=== PATIENT | female | born 1980 | race Caucasian/White ===

== ENCOUNTER 2018-04-13 11:02 | Inpatient (IN) | payer BC, OTHER ==
[~2018-04-13] VITALS: Ht 167.6 cm; Wt 72.6 kg
[2018-04-13] MEDS ORDERED: METHOCARBAMOL 750 MG TABLET PO PRN (21:00)
[2018-04-13] MEDS ORDERED: LORAZEPAM 2 MG/1 ML VIAL IM PRN (21:00)
[2018-04-13] MEDS: ROPINIROLE 2 MG PO SCH (21:00)
[2018-04-13] MEDS: SPIRONOLACTONE 50 MG PO SCH (21:00)
[2018-04-13] MEDS ORDERED: MAGNESIUM HYDROXIDE 30 ML LIQUID UDC PO PRN (21:00)
[2018-04-13] MEDS ORDERED: THIAMINE HCL 200 MG/2 ML VIAL IM ONE (21:00)
[2018-04-13] MEDS ORDERED: MIRALAX 17 GM POWD.PACK PO PRN (21:00)
[2018-04-13] MEDS ORDERED: CLONIDINE HCL 0.1 MG TABLET PO PRN (21:00)
[2018-04-13] MEDS ORDERED: NICOTINE 14 MG/24HR PATCH TD PRN (21:00)
[2018-04-13] MEDS ORDERED: ONDANSETRON ODT 4 MG TAB.RAPDIS SL PRN (21:00)
[2018-04-13] MEDS ORDERED: ONDANSETRON 4 MG/2 ML VIAL IM PRN (21:00)
[2018-04-13] MEDS ORDERED: MAG HYDROX/AL HYDROX/SIMETH 30 ML LIQUID UDC PO PRN (21:00)
[2018-04-13] MEDS ORDERED: LORAZEPAM 1 MG TABLET PO PRN (21:00)
[2018-04-13] MEDS ORDERED: DICYCLOMINE HCL 20 MG TABLET PO PRN (21:00)
[2018-04-13] MEDS ORDERED: diphenhydrAMINE 50 MG CAPSULE PO PRN (21:00)
[2018-04-13] MEDS ORDERED: LOPERAMIDE HCL 2 MG CAPSULE PO PRN ×2 (21:00)
[2018-04-13 21:06] LABS: *URINE HCG, QUAL NEGATIVE (NEGATIVE)
[2018-04-13 21:09] LABS: BASOPHILS # (AUTO) 0.1 K/uL (0.0-8.0); EOSINOPHILS # (AUTO) 0.5 K/uL (0.0-0.7); EOSINOPHILS % (AUTO) 3.5 % (0.0-7.0); HEMATOCRIT 34.3 % (31.2-41.9); HEMOGLOBIN 11.5 g/dL (10.9-14.3); LYMPHOCYTES # (AUTO) 2.5 K/uL (20.0-40.0); LYMPHOCYTES % (AUTO) 18.6 % (20.5-51.5); MEAN CORPUSCULAR HEMOGLOBIN 30.4 uug (24.7-32.8); MEAN CORPUSCULAR HGB CONC 33 g/dL (32.3-35.6); MEAN CORPUSCULAR VOLUME 90.8 fL (75.5-95.3); MONOCYTES # (AUTO) 0.8 K/uL (2.0-10.0); MONOCYTES % (AUTO) 5.7 % (0.0-11.0); NEUTROPHILS # (AUTO) 9.4 K/uL (1.8-8.9); NEUTROPHILS % (AUTO) 71.2 % (38.5-71.5); PLATELET COUNT (AUTO) 572 K/uL (179-408); RED BLOOD CELL COUNT(AUTO) 3.78 MIL/uL (3.63-4.92); WHITE BLOOD COUNT (AUTO) 13.2 K/uL (3.8-11.8)
--- NOTE | 2018-04-13 21:15 | NUR ---
Intake Assessment Assessment done at intake office. Pt appears mildly withdrawing. Patient is alert & oriented x4. She has a blunt affect, flushed face, anxious/irritable mood. She presented with fine tremors, chills, & complains of moderately severe headache and 6/10 generalized body aches. Speech is soft & clear. No complaints of shortness of breath noted. Bowel sounds active in all quadrants. Vitals taken immediately B/P 123*73, FL 87, RR 18, Temp 98.1, O2Sat 98%. Pt is coherent and is able to sign consent & respond to questions appropriately. Explained to pt unit protocols such as Q4H Vitals signs check & regarding destruction of any controlled substances brought to facility and handling of all medications. Pt verbalized understanding.
[2018-04-13 21:19] LABS: *AMPHETAMINE, URINE NEGATIVE (NEGATIVE); *BARBITURATE, URINE NEGATIVE (NEGATIVE); *CANNABINOID, URINE POSITIVE (NEGATIVE); *COCCAINE, URINE NEGATIVE (NEGATIVE); *OPIATE, URINE POSITIVE (NEGATIVE); *PHENCYCLIDINE SCREEN,URINE NEGATIVE (NEGATIVE)
[2018-04-13 21:21] LABS: ALANINE AMINOTRANSFERASE 24 U/L (14-59); ALKALINE PHOSPHATASE 150 U/L (50-136); AMYLASE 29 U/L (25-115); ASPARTATE AMINOTRANSFERASE 14 U/L (15-37); BILIRUBIN,TOTAL 0.4 mg/dL (0.2-1.0); CARBON DIOXIDE 32 mmol/L (21-32); CHLORIDE 104 mmol/L (98-107); CREATININE 0.6 mg/dL (0.6-1.3); GLUCOSE 95 mg/dL (74-106); LIPASE 71 U/L (73-393); MAGNESIUM 1.9 mg/dL (1.8-2.4); POTASSIUM 3.7 mmol/L (3.5-5.1); TOTAL PROTEIN, SERUM 7.6 g/dL (6.4-8.2); UREA NITROGEN, BLOOD 11 mg/dL (7-18)
--- NOTE | 2018-04-13 21:26 | NUR ---
ADMISSION NOTE: Patient is a 38 y.o female admitted at [facility] on 04/13/18 for medically supervised withdrawal from ETOH, Tramadol & Lynndyl. Patient arrived at approximately 2126pm. Body search done and skin check performed by female staff nurse, no contraband found. Skin noted to be intact. Pt is 5'6" tall and weighs 160 lbs in a standing scale. Pt is cooperative during assessment. Patient is oriented to floor unit and room. Patient follows a regular diet with allergies to Naproxen. Pt wishes to be full Code. Pt appears mildly withdrawing. Patient is alert & oriented x4. She has a blunt affect, flushed face, anxious/irritable mood. She presented with fine tremors, chills, & complains of moderately severe headache and 6/10 generalized body aches. Speech is soft & clear. No complaints of shortness of breath noted. Bowel sounds active in all quadrants. Last Bowel movement was today 04/13/18. Lung Sounds clear throughout. Pt denies SOB, cough or chest pain at this time. Pt denies visual, auditory & tactile hallucinations. COWS 7 CIWA 14 noted at this time. Pt has a PCP named Dr. Roche. Pt has medical history such as Osteoarthritis, RLS, Iron deificiency anemia, PCOS, Asthma, Bipolar D/O, Panic D/O Anxiety, Depression, Herpes, Hysterectomy(2 weeks ago), Gastric Bypass(2002), & 2x. Pt reported a hx of suicide attempt 13 years ago where she took a large amount of pills. Per pt, My life was just a mess back then. Pt currently denies SI/HI. She denies hx of seizures. Pt placed on a Fall & Seizure precaution. Pt brought home medications with her and was reconciled. Blood Labs were drawn. Pt was able to provide urine sample for drug screen upon admission and is voiding clear yellow urine with no problems. Substance use: 1. ETOH- Pt stated that she binge drinks every week and would drink 1-2 pints of vodka for 2-5 days at a time. Per pt, she had 1 pint of Vodka on the day of admission 04/13/18. 2. Tramadol- Patient stated that she started taking Tramadol a year ago for her Osteoarthritis. Patient is taking 500-750mg of Tramadol daily. She had a 150mg today 04/13/18 at around 2pm. 3. Lynndyl- Patient stated that she started taking Lynndyl a year ago for her Osteoarthritis. Patient is taking 50-75mg of Lynndyl daily. She had a 5 mg today 04/13/18 at around 2pm. Pt has been to [facility] in [place] last 2013 where she stayed sober for 3 years. She relapsed 1 year ago. Per patient, "I had a when I had my last baby and had to take some pills, after that I could not stop". Per pt, she decided to come to treatment because "Im here to get off medications". She also stated "I just wanted to be a better person for myself & to be a better mother. Now I have more to look forward to in life". Patient is a daily smoker currently smokes 10-15 cigarettes daily. Fall & Seizure precautions are in place. Both side rails are up, educated on proper use of call light with good verbal understanding. Dr. Ayala saw patient at intake and orders are placed. Educated patient about plan of care including detox, group therapy, individual therapy, and discharge planning. Encouraged patient to verbalized feelings. Encourage fluids as tolerated. Will continue to monitor patient.
[2018-04-13 21:29] LABS: ETHANOL < 3 MG/DL (0-0)
[2018-04-13 21:56] LABS: IRON, SERUM 15 ug/dL (50-175)
[2018-04-13 22:26] LABS: THYROID STIMULATING HORMONE 1.754 mIU/mL (0.358-3.740)
[2018-04-13] MEDS: LORAZEPAM 1 MG TABLET PO PRN (22:39)
[2018-04-13] MEDS: ACETAMINOPHEN 325 MG TABLET PO PRN (22:39)
--- NOTE | 2018-04-13 22:39 | NUR ---
PRN Ativan/Robaxin/Tylenol Patient presented with sweating, anxiety, agitation, fine tremors, moderately severe headache, generalized body aches. CIWA 14 noted at this time. PRN Ativan, Robaxin & Tylenol administered as ordered. Safety measures in place. Will continue to monitor patient.
[2018-04-13] MEDS ORDERED: KETO10TA2 PO (22:42)
[2018-04-13] MEDS ORDERED: PROM25TA15 PO (22:42)
[2018-04-13] MEDS ORDERED: BUPR100T6 PO (22:42)
[2018-04-13] MEDS ORDERED: FLUO-120 PO (22:42)
[2018-04-13] MEDS ORDERED: IBUP-1957 PO (22:42)
[2018-04-13] MEDS ORDERED: ROPI1TAB2 GT (22:42)
[2018-04-13] MEDS ORDERED: LAMO100T PO (22:42)
[2018-04-13] MEDS ORDERED: SPIR50TA3 PO (22:43)
--- NOTE | 2018-04-13 23:39 | NUR ---
PRN Reassessment Patient appears less restless. Pt verbalized decreased in anxiety & agitation & he reports some relief of headache. CIWA 10 noted at this time. Pt in bed and appears comfortable. Safety measures in place. Will continue to monitor patient.
[2018-04-14] VITALS: BP 126/72
[2018-04-14] MEDS ORDERED: BUPRENORPHINE HCL 2 MG TAB.SUBL SL PRN (03:00)
[2018-04-14 04:00] VITALS: BP 127/83
--- NOTE | 2018-04-14 07:08 | NUR ---
End of Shift Note: Patient is a 38 y.o female admitted last night for medically supervised withdrawal from [place], Tramadol & ETOH. Patient remains alert & oriented x4. She presented with anxiety, agitation, fine tremors, chills, moderately severe headache and generalized body aches. She will be started on a Subutex taper today. Last COWS 7 CIWA 10. She received PRN Ativan 2mg, Robaxin and Tylenol last night and was effective. Continued to closely monitor patient. Vitals noted WNL and will be closely monitored. She was able to sleep for a total of 5 hours. Fluid intake: 850 ml, Voided 1x with no bowel movement. Continue to encourage pt to participate in group therapy and to increase fluid intake as tolerated. All needs attended & met. Safety measures in place. Will endorse pt to day shift nurse.
[2018-04-14 08:00] VITALS: BP 105/72
[2018-04-14] MEDS: THIAMINE HCL 100 MG TABLET PO SCH (08:10)
[2018-04-14] MEDS: MULTIVITAMINS,THERAPEUTIC TABLET PO SCH (08:10)
[2018-04-14] MEDS: BUPRENORPHINE HCL 2 MG TAB.SUBL SL SCH ×3 (08:10→20:53)
--- NOTE | 2018-04-14 08:15 | NUR ---
CIWA 9 AND PRN ATIVAN 1 MG ADMINISTERED TO MANAGE S/S OF W/D. COWS 16 AND INDUCTION DOSE GIVEN ORDERED. PPD PLANTED TO [facility]. PUPILS MODERATELY DILATED. TREMORS TO BUE NOTED. SHE IS FIDGETY. WILL CONTINUE TO MONITOR AND MANAGE S/S OF W/D
--- NOTE | 2018-04-14 08:15 | NUR ---
START OF SHIFT: RECEIVED PT A/O X 4. SHE PRESENTS WITH ANXIOUS MOOD AND CONGRUENT AFFECT. SHE C/O SWEATS,CHILLS,ANXIETY,MILD NAUSEA,RESTLESSNESS AND TREMORS. SOUMYA
[2018-04-14] MEDS ORDERED: FOLIC ACID 1 MG TABLET PO SCH (09:00)
[2018-04-14] MEDS ORDERED: TUBERCULIN,PURIF.PROT.DERIV. 5 TU/0.1 ML TEST ID ONE (09:00)
--- NOTE | 2018-04-14 09:15 | NUR ---
PRN ATIVAN 1 MG MILDLY EFFECTIVE. CIWA 7. WILL CONTINUE TO MONITOR AND MANAGE S/S OF W/D.
[2018-04-14 12:00] VITALS: BP 142/84
[2018-04-14] MEDS: IBUPROFEN 600 MG TABLET PO PRN ×2 (12:14→20:52)
[2018-04-14] MEDS: FAMOTIDINE 20 MG TABLET PO SCH (12:14)
[2018-04-14] MEDS ORDERED: BACLOFEN 10 MG TABLET PO SCH ×2 (13:00→21:00)
[2018-04-14] MEDS: DICYCLOMINE HCL 20 MG TABLET PO SCH ×2 (14:18→20:52)
[2018-04-14] MEDS: LORAZEPAM 1 MG TABLET PO PRN ×2 (14:18→20:53)
--- NOTE | 2018-04-14 14:22 | NUR ---
PRN ATIVAN 2 MG PO GIVEN FOR CIWA 14. SHE C/O SWEATING , CHILLS FIDGETING ANXIETY RESTLESSNESS AND FEELS SHE IS CRAWLING OUT OF HER SKIN.WILL MONITOR EFFECTIVENESS OF PRN MED.
--- NOTE | 2018-04-14 15:22 | NUR ---
ATIVAN PRN EFFECTIVE AEB CIWA 10. SHE STATES SHE FEELS A LITTLE BETTER.
[2018-04-14 16:00] VITALS: BP 134/90
--- NOTE | 2018-04-14 18:28 | NUR ---
END OF SHIFT: PT STARTED SUBUTEX TAPER THIS AM TO MANAGE S/S OF W/D WHICH INCLUDE NAUSEA,ANXIETY,SWEATS,CHILLS,AGITATION,BODY ACHES AND ANXIETY. SHE WAS GIVEN PRN ATIVAN 1 MG PO THIS AM AND PRN ATIVAN 2MG THIS AFTERNOON FOR ELEVATED CIWA SCORES. SHE STATES THE ATIVAN WAS EFFECTIVE. LAST COWS 12. LAST CIWA 11 . SHE WAS COMPLIANT WITH INCREASED FLUIDS. SHE INTERACTED WITH PEERS. PPD PLANTED TO [facility]. WILL PASS SHIFT REPORT TO ONCOMING NIGHT NURSE.
--- NOTE | 2018-04-14 18:56 | NUR ---
Pt requested to see RD. At RD visited, pt stated she had been on 4 different gastric bypasses, pt lost a lot of wt, now she concerned if she becoming an eating disorder, pt is knowledgeable about how to proper intake of food but she is afraid of eating food would make her become overweight again. RD explained and gave supported, gave out education materials. Pt accepted and was happy. Addendum: 04/14/18 at [address] Amended: Links added.
--- NOTE | 2018-04-14 19:15 | NUR ---
Start of Shift Note: Patient is a 38 y.o female admitted last night for medically supervised withdrawal from [place], Tramadol & ETOH. Patient remains alert & oriented x4. She has a flushed face, anxious & irritable mood, with disheveled and unkempt appearance. She presents with anxiety, agitation, fine tremors, sweating, chills, runny nose, reports moderately severe headache and 5/10 generalized body aches. She was started on a Subutex taper today and tolerating well. Last COWS 12 CIWA 11. She received PRN Ativan 2mg, and and Ativan 1mg during the day and was effective per report. Encourage pt to increase fluid intake & encourage participation in group therapy to prevent relapse. Educated patient of current plan of care for the night and medication regimen. Safety precaution in place. Bed locked in lowest position. Both side rails up. Call light within pt's reach. Will continue to monitor patient.
[2018-04-14 20:00] VITALS: BP 141/86
[2018-04-14] MEDS: ROPINIROLE 2 MG PO SCH (20:52)
[2018-04-14] MEDS: SPIRONOLACTONE 50 MG PO SCH (20:52)
--- NOTE | 2018-04-14 20:53 | NUR ---
PRN Ativan & Motrin Patient presented with anxiety, agitation, fine tremors, sweating & moderate severe headache. Pt noted with a CIWA of 18 at this time. PRN Ativan 2mg and Motrin administered as ordered. Safety measures in place. Will continue to monitor patient.
[2018-04-14] MEDS ORDERED: CLONIDINE HCL 0.1 MG TABLET PO SCH (21:00)
--- NOTE | 2018-04-14 21:53 | NUR ---
PRN Reassessment Patient verbalized decreased in anxiety, agitation & some relief from headache. Pt noted with a decreased in headache from 7/10 to 4/10 pain at this time. CIWA 13 noted after 1 hour of PRN administration. Safety measures in place. Will continue to monitor patient.
[2018-04-14] MEDS: LAMOTRIGINE 100 MG TABLET PO SCH (22:22)
[2018-04-14] MEDS: FLUOXETINE HCL 20 MG CAPSULE PO SCH (22:22)
[2018-04-15] VITALS: BP 128/72
[2018-04-15] MEDS: IBUPROFEN 600 MG TABLET PO PRN ×2 (06:46→18:52)
--- NOTE | 2018-04-15 06:46 | NUR ---
PRN Motrin Patient complained of moderate headache. She is restless and with noted facial grimacing at this time. PRN Motrin administered as ordered. Will monitor for effectiveness of medication.
--- NOTE | 2018-04-15 07:05 | NUR ---
End of Shift Note: Continue to closely monitor patient. She remains alert & oriented x4. During my shift, she presented with anxiety, agitation, fine tremors, sweating, chills, runny nose, reports myalgia and headache. Pt continues on her Subutex taper and tolerating well. Pt also on PRN Ativan to manage s/s of withdrawals. Last COWS 12 CIWA 13. She received PRN Motrin x2 for pain and Ativan for increased CIWA scores and were effective. Pt verbalized taper medications to be effective in decreasing symptoms of withdrawal. Pt stable at this time and vitals noted WNL. Continue to encourage pt to participate in group therapy to learn new coping skills and to prevent relapse. She was able to sleep for a total of 6 hours. Fluid intake: 855 ml, Voided 2x with no bowel movement. All needs attended & met. Safety measures in place. Will endorse pt to day shift nurse.
[2018-04-15 07:06] LABS: HEPATITIS B SURFACE AG Negative (Negative)
--- NOTE | 2018-04-15 07:43 | NUR ---
Start of shift note; Received report from night nurse. Patient is 38 year old female admitted on 04/13/18 for ETOH/Opiate withdrawal. Patient was placed on 5 day Subutex and PRN Ativan. Patient is AOX4, presented with anxiety, agitation, complaining of headache, muscle aches, stomach cramps. Patient received PRN Motrin and Ativan noted to be effective. Patient's last COWS is 12 and last CIWA is 18 per endorsement. Patient slept for 6 hours. Educated patient regarding the importance of compliance to treatment and medication regime. Encouraged patient to participate in group activities and therapies. All safety measures secured. Will continue to monitor patient.
--- NOTE | 2018-04-15 07:46 | NUR ---
Re-assessment; Patient reported improvement of headache. PRN medication noted to be effective.
[2018-04-15 08:00] VITALS: BP 127/88
[2018-04-15 08:04] LABS: BASOPHILS # (AUTO) 0.1 K/uL (0.0-8.0); BASOPHILS % (AUTO) 1.3 % (0.0-2.0); EOSINOPHILS # (AUTO) 0.4 K/uL (0.0-0.7); EOSINOPHILS % (AUTO) 4.3 % (0.0-7.0); HEMATOCRIT 30.1 % (31.2-41.9); HEMOGLOBIN 10.2 g/dL (10.9-14.3); LYMPHOCYTES % (AUTO) 23.4 % (20.5-51.5); MEAN CORPUSCULAR HEMOGLOBIN 31.1 uug (24.7-32.8); MEAN CORPUSCULAR HGB CONC 34 g/dL (32.3-35.6); MONOCYTES # (AUTO) 0.6 K/uL (2.0-10.0); MONOCYTES % (AUTO) 7.4 % (0.0-11.0); NEUTROPHILS # (AUTO) 5.5 K/uL (1.8-8.9); NEUTROPHILS % (AUTO) 63.6 % (38.5-71.5); PLATELET COUNT (AUTO) 364 K/uL (179-408); RED BLOOD CELL COUNT(AUTO) 3.27 MIL/uL (3.63-4.92); WHITE BLOOD COUNT (AUTO) 8.7 K/uL (3.8-11.8)
[2018-04-15 08:19] LABS: BILIRUBIN,DIRECT 0.1 mg/dL (0.0-0.2); BILIRUBIN,TOTAL 0.4 mg/dL (0.2-1.0); CREATININE 0.6 mg/dL (0.6-1.3); MAGNESIUM 1.9 mg/dL (1.8-2.4); PHOSPHOROUS 3.3 mg/dL (2.5-4.9); POTASSIUM 3.9 mmol/L (3.5-5.1); TOTAL PROTEIN, SERUM 6.1 g/dL (6.4-8.2)
[2018-04-15] MEDS: BACLOFEN 10 MG TABLET PO SCH ×3 (08:59→21:01)
[2018-04-15] MEDS: THIAMINE HCL 100 MG TABLET PO SCH (08:59)
[2018-04-15] MEDS: MULTIVITAMINS,THERAPEUTIC TABLET PO SCH (08:59)
[2018-04-15] MEDS: FAMOTIDINE 20 MG TABLET PO SCH (09:00)
[2018-04-15] MEDS: CLONIDINE HCL 0.1 MG TABLET PO SCH ×3 (09:00→21:01)
[2018-04-15] MEDS ORDERED: BUPRENORPHINE HCL 2 MG TAB.SUBL SL SCH (09:00)
[2018-04-15] MEDS: FOLIC ACID 1 MG TABLET PO SCH (09:00)
[2018-04-15] MEDS: DOCUSATE SODIUM 250 MG CAPSULE PO SCH (09:00)
[2018-04-15] MEDS: DICYCLOMINE HCL 20 MG TABLET PO SCH ×3 (09:00→21:01)
[2018-04-15 12:00] VITALS: BP 132/75
[2018-04-15] MEDS: KETOROLAC TROMETHAMINE 30 MG INJ IM PRN (12:14)
--- NOTE | 2018-04-15 12:14 | NUR ---
PRN medication; Patient is complaining of aching back pain rated 9/10. PRN Toradol 30mg /Ml IM given on left buttocks area. Will closely monitor patient for effectiveness of medication .
--- NOTE | 2018-04-15 13:14 | NUR ---
Re-assessment; Patient stated improvement of pain , at this time patient rated pain 5/10 . PRN medication noted to be effective.
[2018-04-15] MEDS: BUPRENORPHINE HCL 2 MG TAB.SUBL SL SCH ×2 (14:17→21:01)
[2018-04-15 16:00] VITALS: BP 116/61
--- NOTE | 2018-04-15 18:39 | NUR ---
End of shift note; Patient is AOX4, presented with anxiety, muscle aches, depression, stomach cramps and constipation. Patient remained compliant with treatment plan and medication regime. Medications were effective in reducing withdrawal symptoms. Patient participated in group activities and therapies. Patient received PRN IM Toradol today for lower back pain noted to be effective. Patient's last COWS score is 11 and last CIWA score is 10 at 1600. Patient was seen and evaluated by MD, MD increased scheduled Bentyl dose to 40mg/dose and added Colace for constipation. Encouraged patient to maintain adequate fluid and nutritional intake. All safety measures secured. Met all needs.
--- NOTE | 2018-04-15 18:54 | NUR ---
PRN medication; Patient is complaining of headache rated 5/10 on pain scale. PRN Motrin 600mg PO given for pain/headache. Will endorse to night nurse for re-assessment/effectiveness of medication.
--- NOTE | 2018-04-15 19:15 | NUR ---
Start of Shift Note: Endorsement received from day shift nurse. Patient is a 38 y.o female admitted last night for medically supervised withdrawal from [place], Tramadol & ETOH. She remains alert & oriented x4. She presented with anxiety, agitation, chills, restlessness, myalgia, runny nose, mild headache and fine tremors. She continues on her Subutex taper today and tolerating well. Last COWS 11 CIWA 10. She received PRN Motrin & toradol for pain during the day and was effective per report. Encourage pt to increase fluid intake & encourage participation in group therapy to prevent relapse. Educated patient of current plan of care for the night and medication regimen. Safety precaution in place. Bed locked in lowest position. Both side rails up. Call light within pt's reach. Will continue to monitor patient.
[2018-04-15 20:00] VITALS: BP 116/75
[2018-04-15] MEDS: FLUOXETINE HCL 20 MG CAPSULE PO SCH (21:01)
[2018-04-15] MEDS: LAMOTRIGINE 100 MG TABLET PO SCH (21:01)
--- NOTE | 2018-04-15 21:01 | NUR ---
PRN Miralax Patient complained of constipation and reported that she haven't had a BM for more than 2 days now. PRN Miralax administered as ordered. Will continue to monitor patient.
[2018-04-15] MEDS: ROPINIROLE 2 MG PO SCH (21:02)
[2018-04-15] MEDS: SPIRONOLACTONE 50 MG PO SCH (21:02)
[2018-04-16] MEDS: IBUPROFEN 600 MG TABLET PO PRN ×2 (05:39→14:09)
--- NOTE | 2018-04-16 05:39 | NUR ---
PRN Motrin Patient complained of 5/10 headache. PRN Motrin administered as ordered. Will monitor for effectiveness of medication.
--- NOTE | 2018-04-16 06:39 | NUR ---
PRN Reassessment Patient verbalized decreased in headache from 5/10 to 3/10 at this time. Pt in bed watching TV and appears comfortable. No facial grimacing noted at this time. Safety measures in place. will continue to monitor patient.
--- NOTE | 2018-04-16 07:17 | NUR ---
End of Shift Note: Continue to closely monitor patient. She remains alert & oriented x4. She continues to present with anxiety, agitation, chills, restlessness, myalgia, runny nose, mild headache and fine tremors. She continues on her Subutex taper and tolerating well. Last COWS 12 CIWA 12. She received PRN Motrin for pain and Miralax for constipation. Pt verbalized taper medications to be effective in decreasing symptoms of withdrawal. Pt stable at this time and vitals noted WNL. Continue to encourage pt to participate in group therapy to learn new coping skills and to prevent relapse. She was able to sleep for a total of 6 hours. Fluid intake: 1715 ml, Voided 3x with no bowel movement. All needs attended & met. Safety measures in place. Will endorse pt to day shift nurse.
--- NOTE | 2018-04-16 07:45 | NUR ---
Start of shift note; Received report from night nurse. Patient is 38 year old female admitted on 04/13/18 for ETOH/Opiate withdrawal. Patient was placed on 5 day Subutex and PRN Ativan. Patient is AOX4, presented with anxiety, agitation, muscle aches, stomach cramps. Patient received PRN Motrin and Miralax noted to be effective. Patient's last COWS is 12 and last CIWA is 12 per endorsement. Patient slept for 6 hours. Educated patient regarding the importance of compliance to treatment and medication regime. Encouraged patient to participate in group activities and therapies. All safety measures secured. Will continue to monitor patient.
[2018-04-16 08:00] VITALS: BP 103/64
[2018-04-16] MEDS: BUPRENORPHINE HCL 2 MG TAB.SUBL SL SCH ×3 (08:57→21:29)
[2018-04-16] MEDS: BACLOFEN 10 MG TABLET PO SCH (08:57)
[2018-04-16] MEDS: DOCUSATE SODIUM 250 MG CAPSULE PO SCH (08:57)
[2018-04-16] MEDS: CLONIDINE HCL 0.1 MG TABLET PO SCH ×2 (08:57→14:09)
[2018-04-16] MEDS: FOLIC ACID 1 MG TABLET PO SCH (08:57)
[2018-04-16] MEDS: THIAMINE HCL 100 MG TABLET PO SCH (08:57)
[2018-04-16] MEDS: MULTIVITAMINS,THERAPEUTIC TABLET PO SCH (08:57)
[2018-04-16] MEDS: FAMOTIDINE 20 MG TABLET PO SCH (08:58)
[2018-04-16] MEDS: DICYCLOMINE HCL 20 MG TABLET PO SCH ×3 (08:58→21:31)
[2018-04-16 12:00] VITALS: BP 119/76
[2018-04-16] MEDS ORDERED: MAGNESIUM CITRATE 296 ML BOTTLE PO PRN (12:00)
[2018-04-16] MEDS ORDERED: LORAZEPAM 1 MG TABLET PO PRN ×2 (12:00)
[2018-04-16] MEDS: BACLOFEN 20 MG TABLET PO SCH ×2 (14:09→21:29)
--- NOTE | 2018-04-16 14:09 | NUR ---
PRN medication; Patient is complaining of headache/pain rated 5/10, PRN Motrin 600mg PO given as ordered. Will continue to monitor patient for effectiveness of medication.
--- NOTE | 2018-04-16 14:44 | NUR ---
Client was prompted to attend group counseling sessions and agreed to do so.
--- NOTE | 2018-04-16 15:09 | NUR ---
Re-assessment; Patient denies headache at this time. PRN Motrin noted to be effective.
[2018-04-16 16:00] VITALS: BP 130/89
[2018-04-16] MEDS: KETOROLAC TROMETHAMINE 30 MG INJ IM PRN (18:39)
--- NOTE | 2018-04-16 18:42 | NUR ---
PRN medication; Patient is complaining of aching lower back pain rated 9/10. PRN Toradol 30mg/ml IM given on patient's right buttock area. Will continue to monitor patient for effectiveness of medication. Will endorse to night nurse for re-assessment.
--- NOTE | 2018-04-16 18:47 | NUR ---
End of shift note; Patient is AOX4, presented with anxiety, muscle aches, depression, stomach cramps and constipation. Patient remained compliant with treatment plan and medication regime. Medications were effective in reducing withdrawal symptoms. Patient participated in group activities and therapies. Patient received PRN IM Toradol and Motrin . Patient's last COWS score is 11 and last CIWA score is 7 at 1600. Patient was seen and evaluated by MD Encouraged patient to maintain adequate fluid and nutritional intake. All safety measures secured. Met all needs.
--- NOTE | 2018-04-16 19:30 | NUR ---
START OF SHIFT Pt is 38 y/o female admitted on 04/13/18 for ETOH/Opiate withdrawal. Pt continues on Subutex taper as ordered and is tolerating well. Pt is A/A/O X 4, presented with anxiety, agitation, muscle aches and leg cramps. Patient received PRN Motrin and Toradol IM during the day and it was noted to be effective.Last COWS is 11 and last CIWA is 7 at 1600. Pt has been compliant with treatment and medication regime. PO fluid intake encouraged. All safety measures in place,call rangel is within reach. Will continue to monitor.
[2018-04-16 20:00] VITALS: BP 131/61
[2018-04-16] MEDS: CLONIDINE HCL 0.2 MG TABLET PO SCH (21:00)
[2018-04-16] MEDS: ROPINIROLE 2 MG PO SCH (21:27)
[2018-04-16] MEDS: SPIRONOLACTONE 50 MG PO SCH (21:27)
[2018-04-16] MEDS: FLUOXETINE HCL 20 MG CAPSULE PO SCH (21:28)
[2018-04-16] MEDS: LAMOTRIGINE 100 MG TABLET PO SCH (21:29)
--- NOTE | 2018-04-16 21:40 | NUR ---
CLONIDINE 0.2 MG PO HELD DUE TO DECREASED B/P.B/P=131/61.
--- NOTE | 2018-04-17 | NUR ---
COWS & CIWA DEFERRED Pt sleeping comfortably in her bed. Respirations are even and unlabored. COWS and CIWA deferred due to pt sleeping.V/S refused.Safety measures in place, side rails up x2, bed locked in low position, call light within reach. Will continue to monitor.
[2018-04-17] MEDS: KETOROLAC TROMETHAMINE 30 MG INJ IM PRN (02:06)
--- NOTE | 2018-04-17 02:06 | NUR ---
PRN TORADOL IM GIVEN ORDERED FOR LOW BACK PAIN,PAIN LEVEL IS 8/10.INJECTION SITE:RIGHT GLUTEAL MUSCLE.WILL MONITOR FOR EFFECTIVENESS.
--- NOTE | 2018-04-17 03:00 | NUR ---
TORADOL REASSESSMENT PT IS CALM AND RESTING IN BED WITH EYES CLOSED.APPEARS TO BE SLEEPING.NO S/S OF PAIN OR DISCOMFORT NOTED.WILL CONTINUE TO MONITOR.
--- NOTE | 2018-04-17 06:42 | NUR ---
END OF SHIFT Pt is 38 y/o female admitted on 04/13/18 for ETOH/Opiate withdrawal. Pt continues on Subutex taper and is tolerating well. Pt is A/O X 4, c/o anxiety, agitation, muscle aches and leg cramps at the beginning of the shift.HS medications were effective in reducing symptoms. Pt c/o low back pain /. PRN Toradol IM was given during the night and was effective.Last COWS is 10 and last CIWA is 6 at 1999. Pt has been compliant with treatment and medication regime. Pt slept 7 hours,fluid intake was 1250 mls,voided x 3,had a B/M x1. PO fluid intake encouraged. All safety measures in place. Will continue to monitor.
[2018-04-17 08:00] VITALS: BP 108/76
--- NOTE | 2018-04-17 08:05 | NUR ---
START OF SHIFT: RECEIVED PT A/O X 4. SHE PRESENTS WITH ANXIOUS MOOD AND CONGRUENT AFFECT. SHE C/O NIGHT SWEATS, INTERMITTENT CHILLS,BODY ACHES AND RESTLESSNESS AND H/A 5/10 ON PAIN SCALE. COWS 10 CIWA 8.SUBUTEX TAPER IN PROGRESS TO MANAGE S/S OF W/D.MOTRIN PRN GIVEN FOR H/A. WILL MONITOR EFFECTIVENESS. ENCOURAGED INCREASED FLUIDS TO PROMOTE HYDRATION. ENCOURAGED GROUP ATTENDANCE TO IMPROVE COPING SKILLS AND PREVENT RELAPSE. WILL CONTINUE TO MONITOR AND PROVIDE SAFE AND SUPPORTIVE ENVIRONMENT.
[2018-04-17] MEDS: DOCUSATE SODIUM 250 MG CAPSULE PO SCH (08:26)
[2018-04-17] MEDS: IBUPROFEN 600 MG TABLET PO PRN ×2 (08:26→19:57)
[2018-04-17] MEDS: CLONIDINE HCL 0.1 MG TABLET PO SCH ×2 (08:27→15:10)
[2018-04-17] MEDS: FAMOTIDINE 20 MG TABLET PO SCH (08:27)
[2018-04-17] MEDS: FOLIC ACID 1 MG TABLET PO SCH (08:27)
[2018-04-17] MEDS: THIAMINE HCL 100 MG TABLET PO SCH (08:27)
[2018-04-17] MEDS: BACLOFEN 20 MG TABLET PO SCH ×3 (08:27→21:06)
[2018-04-17] MEDS: MULTIVITAMINS,THERAPEUTIC TABLET PO SCH (08:27)
[2018-04-17] MEDS: BUPRENORPHINE HCL 2 MG TAB.SUBL SL SCH ×2 (08:28→21:06)
[2018-04-17] MEDS: DICYCLOMINE HCL 20 MG TABLET PO SCH ×3 (08:28→21:06)
--- NOTE | 2018-04-17 09:05 | NUR ---
PRN KUMAR EFFECTIVE. SHE STATES HER H/A IS GONE. WILL CONTINUE TO MONITOR AND OFFER SUPPORT.
[2018-04-17 12:00] VITALS: BP 119/78
[2018-04-17] MEDS ORDERED: ASPIRIN/ACETAMINOPHEN/CAFFEINE TABLET PO PRN (13:00)
[2018-04-17] MEDS: LIDOCAINE 5% PATCH TD SCH (15:10)
[2018-04-17 16:00] VITALS: BP 100/61
--- NOTE | 2018-04-17 18:40 | NUR ---
END OF SHIFT: PT CONTINUES ON SUBUTEX TAPER TO MANAGE S/S OF W/D WHICH INCLUDE ANXIETY,NIGHT SWEATS BODY ACHES H/A AND ANXIETY. SHE WAS GIVEN PRN MOTRIN THIS AM FOR H/A WHICH WAS EFFECTIVE. LAST COWS 9. LAST CIWA 8 . SHE WAS COMPLIANT WITH GROUP ATTENDANCE AND INTERACTS WITH PEERS. WILL PASS SHIFT REPORT TO ONCOMING NIGHT NURSE.
--- NOTE | 2018-04-17 19:30 | NUR ---
START OF SHIFT Pt is 38 y/o female admitted on 04/13/18 for ETOH/Opiate withdrawal. Pt continues on Subutex taper as ordered and is tolerating well. Pt is A/A/O X 4.Pt received in room,pleasant on approach,c/o anxiety,chills ,head ache and general body ache. PRN Motrin was given during the day and it was noted to be effective.Last COWS 9 and last CIWA 8 at 1600. Pt has been compliant with treatment and medication regime. PO fluid intake encouraged. All safety measures in place,call rangel is within reach. Will continue to monitor.
--- NOTE | 2018-04-17 19:58 | NUR ---
PRN MOTRIN GIVEN ORDERED FOR C/O HEAD ACHE.PAIN LEVEL IS 7/10.WILL MONITOR FOR EFFECTIVENESS.
[2018-04-17 20:00] VITALS: BP 105/65
--- NOTE | 2018-04-17 21:00 | NUR ---
PRN MOTRIN IS EFFECTIVE.HEAD ACHE RELIEVED.
[2018-04-17] MEDS: CLONIDINE HCL 0.2 MG TABLET PO SCH (21:07)
[2018-04-17] MEDS: ROPINIROLE 2 MG PO SCH (21:08)
[2018-04-17] MEDS: FLUOXETINE HCL 20 MG CAPSULE PO SCH (21:08)
[2018-04-17] MEDS: SPIRONOLACTONE 50 MG PO SCH (21:08)
[2018-04-17] MEDS: LAMOTRIGINE 100 MG TABLET PO SCH (21:09)
--- NOTE | 2018-04-17 21:12 | NUR ---
PRN ZOFRAN GIVEN ORDERED FO C/O NAUSEA.NO VOMITING NOTED.
--- NOTE | 2018-04-17 22:12 | NUR ---
ZOFRAN IS EFFECTIVE.NAUSEA IMPROVED,NO VOMITING NOTED.
[2018-04-18 04:00] VITALS: BP 88/50
--- NOTE | 2018-04-18 04:00 | NUR ---
COWS & CIWA DEFERRED Pt sleeping comfortably in her bed. Respirations are even and unlabored. COWS and CIWA deferred due to pt sleeping.Safety measures in place, side rails up x2, bed locked in low position, call light within reach. Will continue to monitor.
--- NOTE | 2018-04-18 06:36 | NUR ---
END OF SHIFT Pt is 38 y/o female admitted on 04/13/18 for ETOH/Opiate withdrawal. Pt continues on Subutex taper as ordered and is tolerating well. Pt is A/A/O X 4.Pt was closely monitored. PRN Motrin and Zofran were given during the night and were effective.Last COWS 8 and last CIWA 7. Pt has been compliant with treatment and medication regime. PO fluid intake encouraged.Pt slept 7 hrs,fluid intake was 1605 mls,voided x 3,B/M X [address],call rangel is within reach. Will endorse care to day shift nurse.
[2018-04-18] MEDS: KETOROLAC TROMETHAMINE 30 MG INJ IM PRN (06:58)
--- NOTE | 2018-04-18 07:00 | NUR ---
PT C/O LOW BACK PAIN 06/02.PRN TORADOL IM GIVEN ORDERED.WILL ENDORSE TO DAY SHIFT NURSE TO FOLLOW UP FOR EFFECTIVENESS.
--- NOTE | 2018-04-18 07:45 | NUR ---
START OF SHIFT PT IS A 38 Y/O F ADMITTED ON 04/13/18 FOR MEDICALLY SUPERVISED ETOH AND OPIATE WITHDRAWAL. LAST COWS 8 AND CIWA 7. PT WAS GIVEN MOTRIN, ZOFRAN, AND TORADOL PRNS LAST SHIFT. RECIEVED PT A/OX4, HAS A FLAT AFFECT; PT WAS WASHING HER FACE IN BATHROOM, RESPIRATIONS EVEN AND UNLABORED. PT APPEARS DISHEVELED, STATES SHE WILL TAKE A SHOWER THIS AM. PT STATES SHE HAS HAD DIAPHORESIS, CHILLS, HOT FLASHES AND HEADACHE AT WORST SINCE STARTING DETOX LAST NIGHT. EDUCATED PT ON PLAN OF CARE AND MED REGIMEN. SIDE RAILS UPX2, BED IN LOW POSITION, CALL LIGHT IS WITHIN REACH. WILL CONTINUE TO MONITOR.
[2018-04-18 08:00] VITALS: BP 114/61
--- NOTE | 2018-04-18 08:00 | NUR ---
REASSESSMENT PT REPORTED TORADOL EFFECTIVE IN DECREASING BACK PAIN NOW 6/10 PAIN. WILL CONTINUE TO MONITOR.
[2018-04-18] MEDS: FOLIC ACID 1 MG TABLET PO SCH (08:16)
[2018-04-18] MEDS: DICYCLOMINE HCL 20 MG TABLET PO SCH ×3 (08:16→21:13)
[2018-04-18] MEDS: BACLOFEN 20 MG TABLET PO SCH ×3 (08:17→21:13)
[2018-04-18] MEDS: CLONIDINE HCL 0.1 MG TABLET PO SCH (08:17)
[2018-04-18] MEDS: DOCUSATE SODIUM 250 MG CAPSULE PO SCH (08:17)
[2018-04-18] MEDS: FAMOTIDINE 20 MG TABLET PO SCH (08:17)
[2018-04-18] MEDS: MULTIVITAMINS,THERAPEUTIC TABLET PO SCH (08:17)
[2018-04-18] MEDS: THIAMINE HCL 100 MG TABLET PO SCH (08:17)
[2018-04-18] MEDS: LIDOCAINE 5% PATCH TD SCH (08:18)
[2018-04-18] MEDS ORDERED: BUPRENORPHINE HCL 2 MG TAB.SUBL SL SCH (09:00)
[2018-04-18] MEDS ORDERED: IBUPROFEN 800 MG TABLET PO PRN (11:45)
[2018-04-18 12:00] VITALS: BP 101/64
[2018-04-18] MEDS: ACETAMINOPHEN 325 MG TABLET PO PRN (12:55)
--- NOTE | 2018-04-18 12:55 | NUR ---
PRN PT C/O HEADACHE AND REQUESTED TO HAVE TYLENOL IS THIS TIME. TYLENOL 650 MG PO PRN GIVEN. WILL MONITOR AND REASSESS.
--- NOTE | 2018-04-18 13:55 | NUR ---
REASSESSMENT PT IS LAYING IN BED WITH EYES CLOSED, SLEEPING AT THIS TIME. RESPIRATIONS EVEN AND UNLABORED. SAFETY MEASURES IN PLACE. WILL CONTINUE TO MONITOR.
[2018-04-18] MEDS ORDERED: Aspirin/Acetaminophen/Caffeine PO (14:13)
[2018-04-18] MEDS ORDERED: BACL20TA PO (14:13)
[2018-04-18] MEDS ORDERED: LIDO30AD10 TD (14:13)
[2018-04-18] MEDS ORDERED: DICY20TA28 PO ×2 (14:13)
[2018-04-18] MEDS ORDERED: FAMO20TA8 PO (14:13)
[2018-04-18] MEDS ORDERED: DIPH50CA37 PO (14:13)
[2018-04-18] MEDS ORDERED: IBUP-1957 PO (14:13)
[2018-04-18] MEDS ORDERED: CLON0.1T14 PO (14:13)
[2018-04-18] MEDS: CLONIDINE HCL 0.2 MG TABLET PO SCH ×2 (15:21→21:13)
[2018-04-18] MEDS ORDERED: FOLI1TAB16 PO (15:22)
[2018-04-18 16:25] VITALS: BP 111/70
--- NOTE | 2018-04-18 19:09 | NUR ---
END OF SHIFT PT HAS COMPLETED THE SUBUTEX AND VALIUM TAPER AND TOLERATED WELL. PT IS MEDICALLY CLEARED TO BE DISCHARGED TOMORROW TO ABLE TO CHANGE. LAST COWS 8 AND CIWA 8 @1600. PT HAS BEEN GIVEN TYLENOL 650 MG PO PRN FOR HEADACHE. PT HAS BEEN COMPLAINT WITH MED REGIMEN AND TX PLAN. SAFETY MEASURES IN PLACE. ENDORSEMENT GIVEN TO BILINGUAL RESEARCH INTERVIEWER.
[2018-04-18 20:00] VITALS: BP 109/60
--- NOTE | 2018-04-18 20:00 | NUR ---
Start of Shift Patient asleep on bed, AAOx4, arousable and c/o feeling anxious and tired. Patient verbalized, "I feel so tired right now. Come back later." Patient noted to be isolative, melancholic and in depressed mood. Patient noted to be unkempt and with flushed skin. Fall, universal, safety, and seizure prec in place. Call light within reach. Latest COWS=7, CIWA=7. Will continue to monitor.
[2018-04-18] MEDS: FLUOXETINE HCL 20 MG CAPSULE PO SCH (21:13)
[2018-04-18] MEDS: LAMOTRIGINE 100 MG TABLET PO SCH (21:13)
[2018-04-18] MEDS: ROPINIROLE 2 MG PO SCH (21:14)
[2018-04-18] MEDS: SPIRONOLACTONE 50 MG PO SCH (21:14)
[2018-04-19] VITALS: BP 98/57
[2018-04-19 04:00] VITALS: BP 100/64
[2018-04-19] MEDS: KETOROLAC TROMETHAMINE 30 MG INJ IM PRN (06:58)
--- NOTE | 2018-04-19 07:00 | NUR ---
RN note PRN Toradol Pt c/o lower back pain=07/03. Administered Toradol 30 mg IM PRN as ordered. Will reassess.
--- NOTE | 2018-04-19 07:11 | NUR ---
End of Shift Patient continues to be melancholic, isolative and in depressed mood. Pt verbalized that she is looking forward to going to the next step after discharge as well as feeling anxious about it. Fall, universal, seizure and safety prec in place. Call light within reach. Latest COWS=6, CIWA=6, slept for 6 hours. Endorsed to AM shift nurse for continuity of care.
--- NOTE | 2018-04-19 07:44 | NUR ---
START OF SHIFT PT IS A 38 Y/O F ADMITTED ON 04/13/18 FOR MEDICALLY SUPERVISED ETOH AND OPIATE WITHDRAWAL. LAST COWS 6 AND CIWA 6. PT WAS GIVEN TORADOL 30 MG IM PRN LAST SHIFT FOR BACK PAIN. RECIEVED PT A/OX4, HAS A BLUNT AFFECT; PT WAS WASHING HER FACE IN BATHROOM AND PUTTING MAKEUP ON WITH A TECH IN THE ROOM, RESPIRATIONS EVEN AND UNLABORED. PT HAS COMPLETED A 5 DAY SUBUTEX TAPER AND IS MEDICALLY CLEARED TO BE DISCHARGED TODAY. SIDE RAILS UPX2, BED IN LOW POSITION, CALL LIGHT IS WITHIN REACH. WILL CONTINUE TO MONITOR.
[2018-04-19 08:00] VITALS: BP 120/72
[2018-04-19] MEDS: LIDOCAINE 5% PATCH TD SCH (08:21)
[2018-04-19 08:23] VITALS: BP 120/72
[2018-04-19] MEDS: DICYCLOMINE HCL 20 MG TABLET PO SCH (08:23)
[2018-04-19] MEDS: DOCUSATE SODIUM 250 MG CAPSULE PO SCH (08:23)
[2018-04-19] MEDS: FAMOTIDINE 20 MG TABLET PO SCH (08:23)
[2018-04-19] MEDS: FOLIC ACID 1 MG TABLET PO SCH (08:23)
[2018-04-19] MEDS: CLONIDINE HCL 0.2 MG TABLET PO SCH (08:23)
[2018-04-19] MEDS: MULTIVITAMINS,THERAPEUTIC TABLET PO SCH (08:23)
[2018-04-19] MEDS: THIAMINE HCL 100 MG TABLET PO SCH (08:23)
[2018-04-19] MEDS: BACLOFEN 20 MG TABLET PO SCH (08:23)
[2018-04-19] MEDS: ACETAMINOPHEN 325 MG TABLET PO PRN (08:40)
--- NOTE | 2018-04-19 08:44 | NUR ---
PRN TYLENOL 650 MG PO PRN GIVEN FOR C/O HEADACHE 6/10 PAIN. WILL MONITOR AND REASSESS.
--- NOTE | 2018-04-19 09:15 | NUR ---
UA AND CULTURE SENT TO LAB; PT C/O GREENISH/YELLOW DISCHARGE AND PAIN AND PRESSURE IN THE ABD AREA - 2-3 WEEKS POST HYSTERECTOMY.
[2018-04-19 09:34] LABS: *BLOOD, URINE 1+ (NEGATIVE); *CLARITY,URINE CLOUDY (CLEAR); *COLOR,URINE YELLOW (YELLOW); *KETONES,URINE 1+ (NEGATIVE); *PROTEIN,URINE 1+ (NEGATIVE); LEUKOCYTE ESTERASE ,URINE TRACE (NEGATIVE); NITRITE, URINE NEGATIVE (NEGATIVE); UGLUCOSE NEGATIVE (NEGATIVE)
[2018-04-19 09:41] LABS: *BILIRUBIN,URIN 1+ (NEGATIVE)
[2018-04-19 09:42] LABS: BACTERIA,URINE FEW /HPF (NONE SEEN); MUCUS,URINE MANY /LPF (0-FEW); SQUAMOUS EPITHELIAL CELL,UR FEW /HPF (NONE SEEN)
[2018-04-19] MEDS ORDERED: FLUCONAZOLE 100 MG TABLET PO ONE (09:45)
[2018-04-19] MEDS ORDERED: METR500T PO (09:47)
--- NOTE | 2018-04-19 10:05 | NUR ---
DISCHARGE NOTE PT IS IN STABLE CONDITION, VS IN WNL. PT HAS BEEN GIVEN DISCHARGE INSTRUCTIONS AND PT VERBALIZED UNDERSTANDING. LAST COWS 6 AND CIWA 6. PT HAS BEEN SEEN BY MD AND BEEN GIVEN DIFLUCAN BEFORE DISCHARGE; FLAGYL PRESCRIPTION WAS GIVEN TO PT IN THE BLUE BAG. PT HAS LEFT WITH ALL BELONGINGS, DISCHARGE PAPERWORK, ALL PRESCRIPTIONS ON 1005 04/19/18. PT HAS BEEN PICKED UP BY [facility] AND HAS BEEN TAKE TO ABLE TO CHANGE RTC.
== END 2018-04-19 10:05 | disposition other institution (70) | DRG 895 ==
LOC: SRC 20:08
PROVIDERS: ADMIT Internal Medicine; ATTEND Internal Medicine
PROC: HZ2ZZZZ Detoxification Services for Substance Abuse Treatment (ICD-10-PCS; principal; 2018-04-13)
PROC: HZ41ZZZ Group Counseling for Substance Abuse Treatment, Behavioral (ICD-10-PCS; 2018-04-14)
PROC: HZ31ZZZ Individual Counseling for Substance Abuse Treatment, Behavioral (ICD-10-PCS; 2018-04-15)
DX: F11.23 Opioid dependence with withdrawal (principal); K91.2 Postsurgical malabsorption, not elsewhere classified; K95.89 Other complications of other bariatric procedure; F10.120 Alcohol abuse with intoxication, uncomplicated; Y90.0 Blood alcohol level of less than 20 mg/100 ml; F12.90 Cannabis use, unspecified, uncomplicated; Z91.5 Personal history of self-harm; E28.2 Polycystic ovarian syndrome; F17.210 Nicotine dependence, cigarettes, uncomplicated; Z98.84 Bariatric surgery status; D50.9 Iron deficiency anemia, unspecified; D51.9 Vitamin B12 deficiency anemia, unspecified; D52.9 Folate deficiency anemia, unspecified; Z81.8 Family history of other mental and behavioral disorders; Z81.1 Family history of alcohol abuse and dependence; G25.81 Restless legs syndrome; Z90.710 Acquired absence of both cervix and uterus; H54.8 Legal blindness, as defined in USA; F31.9 Bipolar disorder, unspecified; I15.9 Secondary hypertension, unspecified; F50.9 Eating disorder, unspecified; N76.0 Acute vaginitis; D72.823 Leukemoid reaction
CPT/HCPCS: 36415; 70030-TC; 80307; 80349; 80361; 82746; 83550; 83690; 83735; 84100; 84443; 84703; 85025; 86580; 86592; 86705; 86803; 87086; 87340; 87806; A4663; G0480; J1885; J3411; Q0162